=== PATIENT | male | born 1985 | race Caucasian/White ===

== ENCOUNTER 2016-11-13 19:28 | Emergency (ER) | payer OTHER ==
[~2016-11-13 19:28] MED LIST: COUGH DM PO; DECADRON4 MG PO; GUAIFENESIN AC120 ML PO; NORCO 325 MG-51 TAB PO; ZITHROMAX Z PA250 MG PO; ZOFRAN ODT8 MG PO
== END 2016-11-13 21:00 | disposition home or self-care (01) ==
LOC: ED 19:28
DX: A08.4 Viral intestinal infection, unspecified (principal)
CPT/HCPCS: J1200; J1885; J2405; J7030

== ENCOUNTER 2017-03-07 02:54 | Emergency (ER) | payer SELFPAY ==
[~2017-03-07] VITALS: Ht 193 cm; Wt 122.7 kg
[2017-03-07 06:26] VITALS: BP 137/101
== END 2017-03-07 06:26 | disposition home or self-care (01) ==
LOC: ED 02:54
DX: R10.31 Right lower quadrant pain (principal)
CPT/HCPCS: J1885; J2270; J7030

== ENCOUNTER 2017-03-09 01:06 | Emergency (ER) | payer SELFPAY ==
[~2017-03-09] VITALS: Ht 193 cm; Wt 122.7 kg
[2017-03-09 05:30] VITALS: BP 135/92
== END 2017-03-09 05:30 | disposition home or self-care (01) ==
LOC: ED 01:06
DX: R10.31 Right lower quadrant pain (principal); K63.89 Other specified diseases of intestine
CPT/HCPCS: J7030; Q9967

== ENCOUNTER 2018-03-07 23:56 | Emergency (ER) | payer BC ==
[~2018-03-07] VITALS: Ht 193 cm; Wt 127.3 kg
[2018-03-08] MEDS ORDERED: BAYER BACK & B1 EACH PO (00:08)
[2018-03-08] MEDS ORDERED: NORCO 325 MG-51 TA1 PO (01:34)
[2018-03-08] MEDS ORDERED: KETOROLAC10 MG PO (01:34)
[2018-03-08 01:46] VITALS: BP 148/102
== END 2018-03-08 01:46 | disposition home or self-care (01) ==
LOC: ED 23:56
DX: M54.16 Radiculopathy, lumbar region (principal)
CPT/HCPCS: J1100; J1885